=== PATIENT | female | born 1975 | race American Indian/Alaskan Native ===

== ENCOUNTER 2017-01-03 02:56 | Emergency (ER) | payer OTHER ==
[2017-01-03 04:05] LABS: Basophils % (Auto) 0.8 % (0.0-1.8); Eosinophils % (Auto) 0.5 % (0.0-4.3); Hemoglobin 13.4 gm/dl (10.1-14.3); Mean Corpuscular HGB Conc 33 % (30-34); Mean Corpuscular Hemoglobin 27 pg (28-32); Mean Corpuscular Volume 82 fl (79-97); Platelet Count 222 K/mm3 (140-440); Red Blood Count 5.04 M/mm3 (3.65-5.03); Red Cell Distribution Width 14.6 % (13.2-15.2); White Blood Count 7.5 K/mm3 (4.5-11.0)
[2017-01-03 04:20] LABS: Anion Gap 17 mmol/L; BUN/Creatinine Ratio 11.25; Blood Urea Nitrogen 9 mg/dL (7-17); Calcium 9.9 mg/dL (8.4-10.2); Carbon Dioxide 20 mmol/L (22-30); Chloride 102.6 mmol/L (98-107); Glucose 166 mg/dL (65-100); Potassium 3.9 mmol/L (3.6-5.0); Sodium 136 mmol/L (137-145)
[2017-01-03] MEDS ORDERED: BOOSTRIX IM ONE (13:18)
--- NOTE | 2017-01-03 13:45 | Cat Scan Report ---
CT scan of result contrast: Findings: Ventricles are normal in size and midline in location. Focal area of low attenuation measuring 3.5 cm in diameter the left posterior temporal region and left frontal region. No evidence of hemorrhage. Normal brainstem and cerebellum. No extra-axial fluid collection. Cortical atrophy. Normal sinuses and mastoid air cells. Impression: Area of low attenuation at the left posterior temporal region and left frontal region probably represents chronic ischemia. MRI scan for further evaluation if clinically indicated.
--- NOTE | 2017-01-03 14:23 | Emergency Department Report ---
HPI - General Chief Complaint: Fall Time Seen by Provider: 01/03/17 13:10 - HPI HPI: Chief complaint: Fall and lacerated for head HPI: Patient states she ate a combination of different foods and had a shot of alcohol and developed an onset stomach. Patient states she went to the restroom and sat on the toilet thinking that she needed to have a bowel movement but instead she vomited lost her balance and fell and hit her head and lacerated her forehead. Patient denies syncope or loss of consciousness. Patient denies headache or any motor deficits. 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 Patient is on Coumadin for life. Patient takes her Coumadin on a regular basis. Mode of arrival: [private car] Source: [Patient] Began: Last night prior to admission Duration: Laceration persist the bleeding has stopped nausea has stopped Context: See above Quality: No pain Severity: 0 out of 10 Improved with: Bleeding stopped with pressure Worsened with: Nausea. After vomiting Associated signs and symptoms: No complaints at this time ED Past Medical Hx - Past Medical History Previous Medical History?: Yes Hx CVA: Yes Additional medical history: CVA ED Review of Systems ROS: Stated complaint: HEAD INJURY Other details as noted in HPI ROS Constitutional: No fever ENT: No uri symptoms Cardiovascular: No chest pain Respiratory: No sob or cough GI: No nausea vomiting or diarrhea : No dysuria frequency or urgency, Skin: Laceration Neuro: No focal weakness or numbness Psych: No depression Micky/lymph: No edema Physical Exam - Physical Exam Vital Signs: Vital Signs 01/03/17 01/03/17 03:19 08:37 Temperature 98.7 F 98.0 F Pulse Rate 95 H 69 Respiratory 18 18 Rate Blood Pressure 122/92 126/79 O2 Sat by Pulse 100 100 Oximetry Physical Exam: GENERAL: The patient is well-developed well-nourished . HEENT: Normocephalic. Extraocular motions are intact. Patient has moist mucous membranes. Patient has a 3 cm superficial laceration to her forehead NECK: Supple. No meningitic signs are noted. There is no adenopathy noted. CHEST/LUNGS: Clear to auscultation. There is no respiratory distress noted. HEART/CARDIOVASCULAR: Regular. There is no tachycardia. There is no gallop rub or murmur. ABDOMEN: Abdomen is soft, nontender. Patient has normal bowel sounds. There is no abdominal distention. SKIN: There is no rash. There is no edema. There is no diaphoresis. NEURO: The patient is awake, alert, and oriented. The patient is cooperative. The patient has no focal neurologic deficits. The patient has normal speech. MUSCULOSKELETAL: There is no tenderness or deformity. There is no limitation range of motion. There is no evidence of acute injury. ED Course Vital Signs 01/03/17 01/03/17 03:19 08:37 Temperature 98.7 F 98.0 F Pulse Rate 95 H 69 Respiratory 18 18 Rate Blood Pressure 122/92 126/79 O2 Sat by Pulse 100 100 Oximetry - Reevaluation(s) Reevaluation #1: 01/03/17 patient's laceration was sutured by Dr. Mcnally. ED Medical Decision Making - Lab Data Result diagrams: 01/03/17 03:45 01/03/17 03:45 Laboratory Tests 01/03/17 13:49 PT 21.1 H INR 1.82 H APTT 31.5 - Radiology Data Radiology results: report reviewed (CT scan showed no acute process. There was evidence of patient's old stroke.) Critical care attestation.: If time is entered above; I have spent that time in minutes in the direct care of this critically ill patient, excluding procedure time. ED Disposition Clinical Impression: Forehead laceration Qualifiers: Encounter type: initial encounter Qualified Code(s): S01.81XA - Laceration without foreign body of other part of head, initial encounter Closed head injury Qualifiers: Encounter type: initial encounter Qualified Code(s): S09.90XA - Unspecified injury of head, initial encounter Disposition: DISCHARGED TO HOME OR SELFCARE Is pt being admited?: No Does the pt Need Aspirin: No Condition: Stable Instructions: Suture Care (ED) Additional Instructions: Suture removal 5 days. Follow-up with your primary care or return to the emergency department. Referrals: PRIMARY MD KARSON [Primary Care Provider] - 3-5 Days CHERELLE ISAACS MD [Staff Physician] - 3-5 Days (Dr. Isaacs as a primary care doctor.) Time of Disposition: 14:39
[2017-01-03 14:29] LABS: INR 1.82 (0.87-1.13); Partial Thromboplastin Time 31.5 Sec. (24.2-36.6)
[2017-01-03] MEDS ORDERED: XYLOCAINE 1% 20 mL INFILTRATI ONE (14:38)
--- NOTE | 2017-01-03 15:10 | Emergency Department Report ---
Blank Doc - Documentation Documentation: Date: 12/17/16 Procedure Performed: Laceration Repair Indication: Forehead Laceration Anesthesia: 3 cc of 1% lidocaine without epinephrine Details of the procedure: Procedure was from 255 - 306 PM. Sterile procedure was used. There was handwashing, sterile gloves and a sterile field created. 3 mL of 1% lidocaine without epinephrine were used to anesthetize the wound. The wound is about 3 cm in length, linear, superficial and appears clean with sharp edges. After the patient received appropriate local anesthesia, 7 simple interrupted sutures were placed using 6.0 Ethilon suture. All of the needles and any sharps and the instruments were disposed of in the sharp container. After the procedure finished, the wound was covered with sterile gauze. The patient tolerated the procedure well and there were no complications. Estimated Blood Loss:< 5 cc of blood loss Complications: No obvious complications
[2017-01-03] MEDS ORDERED: TRIPLE ANTIBIOTIC TP ONE ×2 (15:34→17:51)
[2017-01-03 16:17] VITALS: BP 124/76
== END 2017-01-03 15:35 | disposition home or self-care (01) ==
LOC: ED 02:56
DX: S01.81XA Laceration without foreign body of other part of head, initial encounter (principal); Z86.73 Personal history of transient ischemic attack (TIA), and cerebral infarction without residual deficits; W18.30XA Fall on same level, unspecified, initial encounter; Y93.9 Activity, unspecified; Y92.89 Other specified places as the place of occurrence of the external cause; Y99.9 Unspecified external cause status
CPT/HCPCS: 36415; 70450; 80048; 85025; 85610; 85730; 90471; 90715; 99284; A6250